=== PATIENT | female | born 2000 | race Hispanic/Latino ===

== ENCOUNTER 2019-03-03 15:13 | Outpatient (CLI) | payer OTHER ==
--- NOTE | 2019-03-03 16:21 | ULT ---
OB ULTRASOUND: 03/03/19 HISTORY: anatomy. FINDINGS: A single live intrauterine gestation is seen with measurements corresponding to an estimated gestatio nal age of 25 weeks, 0 days and RAYRAY at 06/16/19. measurements are as follows: BPD 6.15 cm 25 weeks, 0 days HC 22.63 cm 24 weeks, 5 days AC 20.27 cm 25 weeks, 0 days FL 4.51 cm 25 weeks, 0 days The estimated weight measures 744 grams or 10 oz. This corresponds to the 2nd percentile by Had lock criteria. The heart rate measures 1s36 beats per minute. TIA measures 14.2 cm. Placenta is fundal and on the left without evidence of placenta previa. A three vessel cord, cord insertion, kidneys, bladder, stomach, four chambered heart, lateral v entricles, cerebellum, spine, lips/nose, upper and lower extremities are visualized. No significant f etal anomalies are seen. The cervical length measures 3.6 cm. IMPRESSION: Single live IUP of 25 weeks, 0 days and RAYRAY at 06/16/19. POS: TPC
== END 2019-03-03 15:14 | disposition home or self-care (01) ==
LOC: BICULT 15:13
PROVIDERS: ATTEND Nurse Practitioner
DX: Z34.82 Encounter for supervision of other normal pregnancy, second trimester (principal); Z3A.25 25 weeks gestation of pregnancy
CPT/HCPCS: 76805

== ENCOUNTER 2019-03-18 04:47 | Day surgery (SDC) | payer OTHER ==
[2019-03-18 05:22] VITALS: BP 102/64; TEMP 98.8
[2019-03-18 05:24] VITALS: BMI 23.0
[2019-03-18] MEDS ORDERED: hydrALAZINE 20 MG/ML VIAL SLOW IVP PRN (05:26)
--- NOTE | 2019-03-18 05:36 | PDOC.FPROB ---
FMR OB H&P: HPI - History of Present Illness Chief Complaint: Abdominal Pain and SOB Indentification: 19yo at 27.6wks EDC 06/11/19 History of Present Illness: 19yo at 27.6wks presents as transfer from [place] for abdominal pain that started this morning when her other child woke her up and she took a deep breath. Pain was epigastric and caused her to be SOB. Pain resolved 5min after taking Tylenol at OSH. Currently denies pain, continues to have very minimal SOB. No hx of asthma. Denies VB, LOF, abnormal discharge. Primary Care Physician: Dr Castro FMR OB H&P: Current - Care : 2 Para: 1 Gestational age: 27.6wks Due date: 06/11/19 FMR OB H&P: History - OB History OB History: Anemia in - Surgical History Sx History: None - Social History Social History: Denies alcohol, tobacco, drug use - Family History Family History: Unremarkable FMR OB H&P: Medications - Current Home Medications: Medication Instructions Recorded Confirmed Type Iron Carb,Gl/FA/B12/C/Docusate 1 tablet PO DAILY 03/18/19 03/18/19 History [Ferralet 90] Allergies/Adverse Reactions: Allergies Allergy/AdvReac Type Severity Reaction Status Date / Time No Known Allergies Allergy Verified 03/18/19 05:19 FMR OB H&P: ROS - Review of Systems General: denies: fever/chills Eyes: reports: vision changes (blurry vision when she stood up from bed that quickly resolved). denies: scotomas, floaters ENT: denies: nasal congestion, rhinorrhea Cardiovascular: denies: chest pain, palpitation Respiratory: reports: shortness of breath. denies: cough, congestion Gastrointestinal: reports: abdominal pain. denies: nausea, vomiting Genitourinary (Female): denies: dysuria, vaginal discharge, vaginal bleeding, contractions FMR OB H&P: Vital Signs - Maternal Vital signs: Vital Signs - First Documented Temp Pulse Resp BP Pulse Ox 98.8 F 78 16 102/64 99 03/18/19 05:18 03/18/19 05:18 03/18/19 05:18 03/18/19 05:18 03/18/19 05:18 FMR OB H&P: Physical Exam - Physical Exam General: NAD, awake, alert and oriented HEENT: normocephalic and atraumatic, MMM, conjunctiva clear, grossly normal hearing, oropharynx clear Neck: supple, trachea midline Heart: RRR Deviation from normal: systolic murmur General: CTAB, no respiratory distress, good air movement Abdomen: soft, gravid, non-tender, bowel sound present Musculoskeletal: normal gait and station, pulses present, no misalignment/ asymmetry, no atrophy Neurological: no focal deficit Skin: no rash, good tugor Psychiatric: intact recent and remote memory, good judgement and insight, normal mood and affect FMR OB H&P: A/P - Problem List (1) Status: Acute Disposition: 19yo at 27.6wks presents with abdominal pain that has now resolved sIUP w/ Abd Pain and SOB - Bedside US at OSH with grossly normal fluid, FHTs 130s. Pain and SOB resolved with Tylenol. VSS. - Ordered UA for mild CVA tenderness on exam - FHTs 130's currently UA negative. Pain free at discharge. Plan to follow up with Dr Castro for routine PNC Discussion: Date/Time: 03/18/19 2870 This H&P was discussed with [] and [] who agree with the above documentation and plan.
[2019-03-18 06:49] LABS: Bilirubin Negative (Negative); Blood, Urine Negative (Negative); Clarity Clear (Clear); Glucose, Urine (Dipstick) Normal (Negative); Leukocyte Negative Leu/uL (Negative); Nitrite Negative (Negative); Protein, Urine (Dipstick) Negative (Neg-Trace); RBC/HPF 0-3 HPF (0-3); Squamous Epithelial 0-3 HPF (0-3); Urobilinogen Normal mg/dL (Less than 2); WBC/HPF 0-3 HPF (0-3)
[2019-03-18 07:14] LABS: Bacteria/HPF 1+ HPF (None Seen)
== END 2019-03-18 06:25 | disposition home or self-care (01) ==
LOC: L&D/OP 04:47
PROVIDERS: ATTEND Family Medicine
DX: O99.89 Other specified diseases and conditions complicating pregnancy, childbirth and the puerperium (principal); R10.13 Epigastric pain; R06.02 Shortness of breath; O99.012 Anemia complicating pregnancy, second trimester; D64.9 Anemia, unspecified; Z3A.27 27 weeks gestation of pregnancy
CPT/HCPCS: 81001; 99284

== ENCOUNTER 2019-06-13 11:10 | Day surgery (SDC) | payer OTHER ==
[2019-06-13 12:20] VITALS: BP 119/78; TEMP 98.9
[2019-06-13] MEDS ORDERED: hydrALAZINE 20 MG/ML VIAL SLOW IVP PRN (12:37)
[2019-06-13 13:00] LABS: Amnisure Test No Membranes Rupture (No Rupture)
[2019-06-13 13:03] LABS: Amnisure Internal Control QC ACCEPTABLE (ACCEPTABLE)
--- NOTE | 2019-06-14 01:41 | SS ---
DATE OF ADMISSION: 06/13/2019 DATE OF DISCHARGE: 06/13/2019 REGULAR PHYSICIAN: Ubaldo Castro MD EVALUATING PHYSICIAN: Adonay Shaver MD CHIEF COMPLAINT: Possible leakage of fluid. HISTORY OF PRESENT ILLNESS: Ms. Swartz is a 19-year-old G2, P1, with an estimated date of confinement of 06/13/2019, who presents complaining of thinking that she was possibly leaking this morning. She denies vaginal bleeding or decreased movement. Her care has been with Dr. Castro and it appears she is scheduled for induction later this week. PAST OBSTETRICAL HISTORY: Includes one vaginal delivery at term. PAST MEDICAL HISTORY: None. PAST SURGICAL HISTORY: None. CURRENT MEDICATIONS: vitamins. ALLERGIES: NO KNOWN ALLERGIES. SOCIAL HISTORY: Denies tobacco, alcohol, or drug use. FAMILY HISTORY: Unremarkable. REVIEW OF SYSTEMS: Denies nausea, vomiting, fever, chills, vaginal bleeding, or decreased movement. PHYSICAL EXAMINATION: VITAL SIGNS: In triage, her vital signs are stable and she is afebrile. GENERAL: She is pleasant and in no acute distress. ABDOMEN: Soft, nontender, and gravid. PELVIC: Exam by the labor nurse shows the cervix to be 1 cm dilated, thick with a vertex high. heart rate tracing is stable. Intermittent contractions are seen, but these are not painful to the patient. AmniSure returns negative. ASSESSMENT: 1. 40-week intrauterine . 2. No evidence of ruptured membranes or active labor at this time. PLAN: The patient will be dismissed to home. She was given complete labor precautions and we will verify her induction date with the Labor and Delivery staff here before she leaves. Job ID: [id number]
== END 2019-06-13 13:40 | disposition home or self-care (01) ==
LOC: L&D/OP 11:10
PROVIDERS: ATTEND Family Medicine
DX: O47.1 False labor at or after 37 completed weeks of gestation (principal); Z3A.40 40 weeks gestation of pregnancy
CPT/HCPCS: 84112; 99283

== ENCOUNTER 2019-06-14 19:30 | Inpatient (IN) | payer OTHER, SELFPAY ==
[2019-06-14] MEDS ORDERED: hydrALAZINE 20 MG/ML VIAL SLOW IVP PRN (21:03)
[2019-06-14] MEDS ORDERED: Misoprostol 200 MCG TAB PR PRN (21:03)
[2019-06-14] MEDS ORDERED: Diphenoxylate HCl/Atropine Tablet PO PRN (21:03)
[2019-06-14] MEDS ORDERED: Lidocaine 1% (PF) 30 ML VIAL SC PRN (21:03)
[2019-06-14] MEDS ORDERED: Ondansetron PF 4 MG/2 ML Vial IVP PRN (21:03)
[2019-06-14] MEDS ORDERED: HYDROcodone/Acetaminophen 5/325 mg Tablet PO PRN (21:03)
[2019-06-14] MEDS ORDERED: Ibuprofen 800 MG TAB PO PRN (21:03)
[2019-06-14] MEDS ORDERED: Promethazine HCl 25 MG/ML VIAL IM PRN (21:03)
[2019-06-14] MEDS ORDERED: Carboprost 250 MCG/ML AMP IM PRN (21:03)
[2019-06-14] MEDS ORDERED: NS / Oxytocin 40 units/1000ml 1,000 ML IV PRN (21:03)
[2019-06-14] MEDS ORDERED: Methylergonovine 0.2 MG/ML VIAL IM PRN (21:03)
[2019-06-14] MEDS: Lactated Ringer's 1,000 ML IV SCH (21:15)
[2019-06-14 21:26] LABS: Mean Corpuscular Hemoglobin 26.7 pg (27.0-31.0); Mean Corpuscular Volume 76.2 fL (78.0-98.0); Mean Platelet Volume 9.5 fL (7.4-10.4); Platelet Count 258 thou/uL (130-400); Red Blood Cell (RBC) Count 4.13 mill/uL (4.20-5.40); White Blood Cell (WBC) Count 12.1 thou/uL (4.8-10.8)
[2019-06-14 21:55] VITALS: BMI 24.3
[2019-06-14 22:12] LABS: Syphilis Antibody Nonreactive (Nonreactive)
[2019-06-14 22:47] LABS: HBSAg Index 0.15 S/CO (0-0.99); Hep B Surf Ag Non-Reactive S/CO (NonReactive)
[2019-06-15] MEDS: Butorphanol Tartrate 1 MG/ML VIAL SLOW IVP PRN ×2 (02:01→04:50)
[2019-06-15] MEDS: Lactated Ringer's 1,000 ML IV SCH (04:50)
[2019-06-15] MEDS ORDERED: NS w/ Oxytocin 10 units 500 ML IV SCH ×2 (05:00)
[2019-06-15] MEDS ORDERED: Bisacodyl 10 MG SUPP PR PRN (08:55)
[2019-06-15] MEDS ORDERED: diphenhydrAMINE 25 MG CAP PO PRN (08:55)
[2019-06-15] MEDS ORDERED: Milk Of Magnesia 30 ML UDCUP PO PRN (08:55)
[2019-06-15] MEDS ORDERED: Ondansetron PF 4 MG/2 ML Vial IVP PRN (08:55)
[2019-06-15] MEDS ORDERED: NS / Oxytocin 40 units/1000ml 1,000 ML IV SCH (08:55)
[2019-06-15] MEDS ORDERED: Lanolin Ointment 7 GM TUBE TOP PRN (08:55)
[2019-06-15] MEDS ORDERED: Benzocaine-Menthol 82.5 ML CAN TOP PRN (08:55)
[2019-06-15] MEDS ORDERED: hydrALAZINE 20 MG/ML VIAL SLOW IVP PRN (08:55)
[2019-06-15] MEDS ORDERED: HYDROcodone/Acetaminophen 5/325 mg Tablet PO PRN ×2 (08:55)
[2019-06-15] MEDS: Ibuprofen 800 MG TAB PO SCH ×2 (14:30→23:08)
[2019-06-15] MEDS: Prenatal Vitamin 1 TAB PO SCH (14:42)
[2019-06-15] MEDS: Docusate Calcium (SURFAK) 240 MG CAP PO SCH ×2 (14:43→23:08)
[2019-06-16 06:01] LABS: Hemoglobin 8.6 g/dL (12.0-16.0); Mean Corpuscular HGB CONC 32.4 g/dL (32.0-36.0); Mean Corpuscular Hemoglobin 25.2 pg (27.0-31.0); Mean Corpuscular Volume 77.8 fL (78.0-98.0); Mean Platelet Volume 9.3 fL (7.4-10.4); Platelet Count 224 thou/uL (130-400); RBC Distribution Width 14.1 % (11.5-14.5); Red Blood Cell (RBC) Count 3.41 mill/uL (4.20-5.40); White Blood Cell (WBC) Count 13.9 thou/uL (4.8-10.8)
[2019-06-16] MEDS: Ibuprofen 800 MG TAB PO SCH ×2 (06:22→14:01)
[2019-06-16] MEDS: Ferrous Sulfate 325 MG TAB PO SCH ×2 (08:51→08:54)
[2019-06-16] MEDS: Docusate Calcium (SURFAK) 240 MG CAP PO SCH (08:51)
[2019-06-16] MEDS: Prenatal Vitamin 1 TAB PO SCH (08:51)
[2019-06-16] MEDS ORDERED: Adacel (T-DAP) 0.5 ML SYRINGE IM ONE (08:55)
[2019-06-16 17:44] VITALS: BP 134/90; TEMP 98.4
== END 2019-06-16 18:35 | disposition home or self-care (01) | DRG 807 ==
LOC: L&D-LIB 20:31 → 3SW 06-15 21:54
PROVIDERS: ADMIT Family Medicine; ATTEND Family Medicine
PROC: 10907ZC Drainage of Amniotic Fluid, Therapeutic from Products of Conception, Via Natural or Artificial Opening (ICD-10-PCS; principal; 2019-06-14)
PROC: 10E0XZZ Delivery of Products of Conception, External Approach (ICD-10-PCS; 2019-06-14)
PROC: 0KQM0ZZ Repair Perineum Muscle, Open Approach (ICD-10-PCS; 2019-06-14)
DX: O70.1 Second degree perineal laceration during delivery (principal); Z37.0 Single live birth; O69.1XX0 Labor and delivery complicated by cord around neck, with compression, not applicable or unspecified; Z3A.40 40 weeks gestation of pregnancy
CPT/HCPCS: 36415; 85027; 86780; 86850; 86900; 86901; 87340; J0595; J2001

== ENCOUNTER 2019-08-26 09:11 | Day surgery (SDC) | payer MEDICAID, SELFPAY ==
--- NOTE | 2019-08-26 10:27 | ULT ---
US Gallbladder RUQ History: Upper quadrant pain Comparison: None. Findings: Real-time grayscale and color evaluation right upper quadrant of the abdomen was performed. The abdomen/portion pancreas aorta and IVC are unremarkable. Hepatic echotexture is normal. There is cholelithiasis without cholecystitis. There is dilatation of the distal common bile duct up to 1.4 cm. Right kidney is without mass, hydronephrosis, or abnormal calcifications. Impression: 1. Cholelithiasis without cholecystitis. 2. Dilatation of the common bile duct up to 1.4 cm in size. ERCP/MRCP recommended.
[2019-08-26] MEDS ORDERED: Ketorolac Tromethamine 30 MG/ML VIAL ONE ×2 (11:31→12:02)
[2019-08-26] MEDS ORDERED: Acetaminophen 500 MG TAB ONE (11:31)
[2019-08-26] MEDS ORDERED: Levofloxacin 500 mg/D5W 100 ml Premix Bag ONE (11:31)
[2019-08-26] MEDS ORDERED: Rocuronium Bromide 10 MG/ML (10ML VIAL) ONE (12:02)
[2019-08-26] MEDS ORDERED: Glycopyrrolate 0.2 MG/ML 5 ML SYRINGE ONE (12:02)
[2019-08-26] MEDS ORDERED: PROPOFOL 200 MG/20 ML VIAL ONE (12:02)
[2019-08-26] MEDS ORDERED: Lidocaine 1% PF 5 ML VIAL ONE (12:02)
[2019-08-26] MEDS ORDERED: Ondansetron PF 4 MG/2 ML Vial ONE (12:02)
[2019-08-26] MEDS ORDERED: Dexamethasone 20 MG/5 ML VIAL ONE (12:02)
[2019-08-26] MEDS ORDERED: Succinylcholine Chloride 20 MG/ML 10 ml SYRINGE FS ONE (12:02)
[2019-08-26] MEDS ORDERED: Scopolamine 1.5 mg/72 hour Patch TOP SCH (14:00)
--- NOTE | 2019-08-26 14:25 | HP ---
HISTORY OF PRESENT ILLNESS: A 19-year-old female, 2, para 2, two months , has had 3 months episodic right upper quadrant pain and epigastric pain radiating to her back, associated with nausea, associated greasy foods. She presents to the emergency room, referred from an outlying emergency room with normal liver function tests. Ultrasound demonstrated gallstones and a bile duct of 1.2 cm. ALLERGIES: NONE. TOBACCO: None. ALCOHOL: None. MEDICATIONS: None. PAST SURGICAL HISTORY: Noncontributory. REVIEW OF SYSTEMS: Ten-point noncontributory. She is breast feeding. PHYSICAL EXAMINATION: VITAL SIGNS: Blood pressure 120/68, respiratory rate 18, heart rate 68. HEAD, EARS, EYES, NOSE AND THROAT: Unremarkable. Sclerae nonicteric. LYMPH: No lymphadenopathy in neck, axilla, or groin. NEUROLOGIC: Intact. No focal deficits. LUNGS: Clear to auscultation. HEART: Regular rate and rhythm without murmur or gallop. ABDOMEN: Soft, tenderness in the right upper quadrant with guarding. EXTREMITIES: Unremarkable. LABORATORY DATA: Hemoglobin 8.9. ASSESSMENT AND PLAN: Two months , lactating, symptomatic cholelithiasis. Recommend laparoscopic video cholecystectomy. Risks of infection, bleeding, visceral and biliary injury discussed. Questions answered. Dr. Montelongo is aware of her and will plan an intraoperative cholangiograms, and if negative, she can go home postoperatively, if positive, she may need an ERCP. She understands the risks and benefits. The [employer] service was used. Questions answered. Job ID: [id number]
[2019-08-26] MEDS ORDERED: Bupivacaine PF 0.5% 30 ML VIAL ONE (17:00)
[2019-08-26] MEDS ORDERED: Lidocaine 2% w/Epinephrine 1:200K 20 ML VIAL ONE (17:00)
[2019-08-26] MEDS ORDERED: Iothalamate Meglumine 60% 50 ML VIAL FS ONE (17:00)
[2019-08-26] MEDS ORDERED: Fentanyl 100 MCG/2 ML VIAL ONE ×3 (17:06→18:29)
[2019-08-26] MEDS ORDERED: Famotidine/PF 20 mg/2ml Vial ONE (17:06)
[2019-08-26] MEDS ORDERED: HYDROcodone/Acetaminophen 5/325 mg Tablet ONE (18:39)
[2019-08-26] MEDS ORDERED: Promethazine HCl 25 MG/ML VIAL ONE (19:16)
--- NOTE | 2019-08-26 20:36 | OP ---
DATE OF PROCEDURE: 08/26/2019 PREOPERATIVE DIAGNOSES: Chronic cholecystitis and cholelithiasis, bile duct 1.2 cm, normal liver function test. POSTOPERATIVE DIAGNOSES: Chronic cholecystitis and cholelithiasis, bile duct 1.2 cm, normal liver function test. PROCEDURES PERFORMED: Laparoscopic video cholecystectomy, negative intraoperative cholangiogram using fluoroscopy noting a dilated duct without filling defects and good emptying. ANESTHESIA: General, local 0.5% Marcaine 30 mL mixed with 1% Xylocaine with epinephrine 20 mL. DESCRIPTION OF PROCEDURE: The patient was taken to the operating room, where under general anesthesia, abdomen was prepared with ChloraPrep and draped in routine fashion. Local anesthetic was infiltrated in the skin and subcutaneous tissue at each port site. Infraumbilical incision was made. Pneumoperitoneum to 15 mmHg was obtained. A Veress needle replaced with a 5 port. Right subxiphoid incision was made and 11 port placed, right subcostal incision was made at midclavicular entrance line and 5 port was placed. Liver appeared to be normal. Fundus of the gallbladder was grasped at the cephalad. Infundibulum was grasped and reflected laterally. Cystic artery and duct dissected free. Critical view obtained. Cystic artery and duct doubly clipped and singly clipped on the gallbladder side. An opening made in the cystic duct. Cholangiocatheter was inserted. Cholangiogram was obtained using fluoroscopy revealing dilated common hepatic, common bile, and intrahepatic ducts without filling defects with prompt emptying in the common bile duct. The patient tolerated the procedure well. Cholangiocatheter removed. Cystic duct stump was clipped multiple times. Common duct was visualized and was enlarged. Good hemostasis was noted as the cystic artery and duct divided. Gallbladder dissected free from liver bed, removing the gallbladder and large stones, submitted into the pathology. Good hemostasis was obtained with cautery. Irrigant and pneumoperitoneum were evacuated. All instruments were removed. All skin incisions were approximated with interrupted subdermal 4-0 Monocryl and [place] glue applied. Job ID: [id number]
== END 2019-08-26 20:20 | disposition home or self-care (01) ==
LOC: ERS 09:11 → SDC 16:20
PROVIDERS: ATTEND Emergency Medicine
PROC: BF121ZZ Fluoroscopy of Gallbladder using Low Osmolar Contrast (ICD-10-PCS; principal; 2019-08-26)
PROC: 0FT44ZZ Resection of Gallbladder, Percutaneous Endoscopic Approach (ICD-10-PCS; principal; 2019-08-26)
DX: K80.10 Calculus of gallbladder with chronic cholecystitis without obstruction (principal)
CPT/HCPCS: 47532; 76705; 88304; 96361; 96365; 96375; J1100; J1610; J1885; J1956; J2001; J2405; J2550; J2704; J2710; J3010; S0020; S0028